=== PATIENT | female | born 1970 | race Caucasian/White ===

== ENCOUNTER → 2017-06-22 | Day surgery (SDC) | payer OTHER ==
[~2017-06-22] MED LIST: BACITRACIN TOP OINT 15 GM TUBE; METOPROLOL TARTRATE 25 MG TAB PO; MIDAZOLAM HCL 2 MG/2 ML VIAL; SODIUM CHLORID 0.9% 500 ML IV
[2017-06-22] MEDS: CHLORHEXIDINE GLUCONATE 2 % 1 PACK (2 CLOTHS) TOPICAL (06:49)
[2017-06-22] MEDS: LACTATED RINGER'S 1000 ML IV (07:10)
[2017-06-22] MEDS: POVIDONE IODINE 5% (ANTISEPSIS KIT) 4 APPLICATIONS EACH NARE (07:15)
[2017-06-22 07:19] LABS: HEMATOCRIT 45.9 % (35.0-46.0); HEMOGLOBIN 15.1 GM/DL (11.6-15.3); MEAN CELL VOLUME 95.9 FL (80.0-100.0); MEAN CORPUSCULAR HEMOGLOBIN 31.5 PG (27.0-34.0); MEAN CORPUSCULAR HGB CONC 32.8 % (32.0-36.0); MEAN PLATELET VOLUME 7.4 FL (7.0-11.0); PLATELET COUNT 309 TH/MM3 (150-450); RED BLOOD COUNT 4.78 MIL/MM3 (4.00-5.30); RED CELL DISTRIBUTION WIDTH 12.4 % (11.6-17.2); REVIEW FLAG FINAL; WHITE BLOOD COUNT 7.3 TH/MM3 (4.0-11.0)
[2017-06-22] MEDS: LIDOCAINE 1%/EPINEPHrine 1:100,000 SOLN 30 ML VIAL (07:24)
[2017-06-22] MEDS: ceFAZolin INJ 1,000 MG VIAL (07:52)
[2017-06-22] MEDS: SODIUM CHLORIDE 0.9% INJ 100 ML (07:52)
[2017-06-22] MEDS: BUPIVACAINE/EPINEPHRINE 0.25% PF 30 ML VIAL ×2 (08:07→08:12)
== END | disposition home or self-care (01) ==
LOC: PHSDC 06:08
DX: D21.12 Benign neoplasm of connective and other soft tissue of left upper limb, including shoulder (principal); I10 Essential (primary) hypertension
CPT/HCPCS: 01840; 36415; 85027; 88305; 88307